=== PATIENT | male | born 1995 ===

== ENCOUNTER 2016-12-28 14:27 | Emergency (ER) | payer SELFPAY ==
[2016-12-28 15:10] VITALS: BP 115/61
--- NOTE | 2016-12-28 17:07 | UC ---
[facility] HPI - HPI Summary HPI Summary: Pt presents with c/o of left lower jaw pain and swelling X 3-4 days. pt has Never had dental care and is concerned about dental abscess - History of Current Complaint Chief Complaint: UCDentalProblem Stated Complaint: JAW PAIN Time Seen by Provider: 12/28/16 15:50 Hx Obtained From: Patient Onset/Duration: Gradual Onset, Lasting Days Severity: Mild Pain Intensity: 4 Pain Scale Used: 0-10 Numeric Aggravating: Chewing Alleviating: Nothing Related History: Swelling, Other - no previous dental care - Allergies/Home Medications Allergies/Adverse Reactions: Allergies Allergy/AdvReac Type Severity Reaction Status Date / Time No Known Allergies Allergy Verified 12/28/16 15:06 Home Medications: Home Medications Acetaminop/Codeine 30 MG TAB* [Tylenol/Codeine 30 MG TAB*] 1 tab PO ONCE [History Confirmed 12/28/16] PMH/Surg Hx/FS Hx/Imm Hx Previously Healthy: Yes - Surgical History Surgical History: Yes Surgery Procedure, Year, and Place: Appendectomy, ~2014, [place] - Family History Known Family History: Positive: Cardiac Disease - Social History Occupation: Unemployed Lives: With Family Alcohol Use: Occasionally Substance Use Type: None Smoking Status (MU): Never Smoked Tobacco - Immunization History Most Recent Influenza Vaccination: Not the 2016/2017 Season Review of Systems Constitutional: Negative Skin: Negative Eyes: Negative ENT: Other - left side jaw pain Respiratory: Negative Cardiovascular: Negative Gastrointestinal: Negative Genitourinary: Negative Motor: Negative Neurovascular: Negative Musculoskeletal: Arthralgia - left side jaw Neurological: Negative Psychological: Negative Is Patient Immunocompromised?: No All Other Systems Reviewed And Are Negative: Yes Physical Exam Triage Information Reviewed: Yes Appearance: Well-Appearing Vital Signs: Initial Vital Signs Temp 98.1 F 12/28/16 15:04 Pulse 90 12/28/16 15:04 Resp 16 12/28/16 15:04 BP 115/61 12/28/16 15:04 Pulse Ox 100 12/28/16 15:04 Eye Exam: Normal ENT Exam: Normal Dental Exam: Other - mild swelling left lower gum line. wisdom teeth noted as erupting Neck exam: Normal Respiratory Exam: Normal Cardiovascular Exam: Normal Musculoskeletal Exam: Normal Neurological Exam: Normal Psychological Exam: Normal Skin Exam: Normal Dental Complaint Course/Dx - Differential Dx/Diagnosis Differential Diagnosis/Dx: Dental Abscess Provider Diagnoses: dental abscess. wisdom teeth eruption, possible impacted. neglected dental care Discharge - Discharge Plan Condition: Stable Disposition: HOME Prescriptions: Amoxicillin PO (*) [Amoxicillin 500 MG CAP*] 500 mg PO Q12H #14 cap Ibuprofen TAB* [Motrin TAB* 800 MG] 800 mg PO Q8H PRN #30 tab PRN Reason: Pain Patient Education Materials: Dental Abscess (ED), Toothache (ED) Referrals: [facility] [Outside] Non Staff,Doctor [Primary Care Provider] - Additional Instructions: Please follow up with a dentist as soon as possible.
== END 2016-12-28 16:08 | disposition home or self-care (01) ==
LOC: UCCORT 14:27
DX: K04.7 Periapical abscess without sinus (principal); K00.6 Disturbances in tooth eruption
CPT/HCPCS: 99202; G0463